=== PATIENT | female | born 1950 | race Caucasian/White ===

== ENCOUNTER 2018-01-02 00:47 | Outpatient (CLI) | payer MEDICARE, SELFPAY ==
--- NOTE | 2018-01-02 07:51 | DI.MRI_ITS ---
SYMPTOM/DIAGNOSIS: INCREASING LOW BACK AND RT LEG PAIN, SPINAL STENOSIS, M48.062, NEUROGENIC CLAUDICATION LUMBAR SPINE MRI: Routine noncontrast examination. Comparison is made with 01/31/14. The conus medullaris has a normal appearance and location. At L 5-S 1, there is a small left paracentral disc herniation which does appear to impinge upon the left S 1 nerve root. No central spinal canal stenosis is seen. There is moderate left neural foraminal stenosis due to the degenerative changes. At L 4-5, there is a diffuse disc bulge. There are degenerative changes of the facets. There does appear to be impingement upon both the left and right neural foramen due to the diffuse disc bulge. There is mild narrowing of the central spinal canal noted. Mild left neural foraminal stenosis is present. At L 3-4, there is a moderately large right paracentral disc herniation with extrusion posterior to the L 4 vertebral body. It does compress upon the right L 4 nerve root. There are hypertrophic changes of the facets causing mild to moderate central spinal canal stenosis. Mild to moderate right neural foraminal stenosis is seen and mild left neural foraminal stenosis is present. At L 2-3, there is a small right paracentral disc herniation. There is mild impingement upon the anterior thecal sac. No right neural foraminal stenosis is seen. There is mild left neural foraminal stenosis. At L 1-2, there is no focal disc herniation, central spinal canal or neural foraminal stenosis. Marrow signal is within normal limits apart from the degenerative signal change. IMPRESSION: 1. Moderately large right paracentral disc herniation at L 3-4, extruding posterior to the L 4 vertebral body. It does compress the right L 4 nerve root. Degenerative changes are seen at this level which cause central spinal canal stenosis and neural foraminal stenosis as described above. 2. Small left paracentral disc herniation at L 5-S 1 which does appear to mildly impinge upon the left S 1 nerve root. 3. Multi level degenerative changes in the lumbar spine causing central spinal canal and neural foraminal stenosis as described above.
== END 2018-01-02 01:07 ==
PROVIDERS: PCP Family Medicine; Visit Provider Family Medicine
DX: M54.5 Low back pain (principal); M54.16 Radiculopathy, lumbar region; M48.062 Spinal stenosis, lumbar region with neurogenic claudication; M51.17 Intervertebral disc disorders with radiculopathy, lumbosacral region
CPT/HCPCS: 72148

== ENCOUNTER 2018-01-17 00:41 | Outpatient (CLI) | payer MEDICARE, SELFPAY ==
[2018-01-17 08:18] LABS: HCT 44.8 % (36.0-46.0); HGB 15.3 g/dL (12.0-15.5); Mean Corp. HGB Concentration 34.2 g/dL (32.0-36.0); Mean Corpuscular Hemoglobin 31.1 pg (27.0-33.0); Mean Corpuscular Volume 91.1 fL (80-95); Mean Platelet Volume 9.4 fL (8.0-11.0); Platelet Count 309 x1000/uL (130-400); RBC 4.92 m/cumm (4.00-5.20); RBC Distribution Width 13.4 % (11.7-14.6); White Blood Cell Count 8.52 k/cumm (4.4-10.8)
--- NOTE | 2018-01-17 09:01 | DI.RAD_ITS ---
SYMPTOMS/DIAGNOSIS: SMOKING, PREOPERATIVE GENERAL EXAMINATION, Z01.818 CHEST X-RAY, PA AND LATERAL: Comparison is 10/01/13. The heart size and pulmonary vasculature are within normal limits. There is again seen a calcified granuloma in the right mid lung. No findings to suggest acute pneumonia or congestive heart failure are seen. The lungs appear hyperinflated suggesting underlying COPD. Mild degenerative changes are seen in the spine. IMPRESSION: COPD.
[2018-01-17 09:43] LABS: ALT 32 U/L (12-78); AST 55 U/L (15-37); Albumin 3.4 g/dL (3.4-5.0); Alkaline Phosphatase 167 U/L (46-116); Anion Gap 7.4 mmol/L (3-11); BUN 9 mg/dL (7-18); Bilirubin, Total 0.4 mg/dL (0.2-1.0); CO2 32.6 mmol/L (21.0-32.0); CREATININE 0.79 mg/dL (0.55-1.02); Calcium 9.3 mg/dL (8.5-10.1); Chloride 97 mmol/L (98-107); GGT 41 U/L (5-55); Glucose 105 mg/dL (70-100); Potassium 4.7 mmol/L (3.5-5.1); Sodium 137 mmol/L (136-145); TSH (W/Ref FT4) 2.88 uIU/mL (0.358-3.74); Total Protein 7.1 g/dL (6.4-8.2)
== END 2018-01-17 01:01 ==
PROVIDERS: PCP Family Medicine; Visit Provider Family Medicine
DX: F17.200 Nicotine dependence, unspecified, uncomplicated (principal); J44.9 Chronic obstructive pulmonary disease, unspecified; E78.5 Hyperlipidemia, unspecified; E83.52 Hypercalcemia; K70.10 Alcoholic hepatitis without ascites; Z01.818 Encounter for other preprocedural examination
CPT/HCPCS: 36415; 80053; 85027; 71046; 82977; 84443

== ENCOUNTER 2018-05-18 01:41 | Outpatient (CLI) | payer MEDICARE, SELFPAY ==
--- NOTE | 2018-05-18 07:30 | DI.MAMMO_ITS ---
SYMPTOMS/DIAGNOSIS: SCREENING, Z12.31 MAMMOGRAMS: Mammograms were interpreted according to the usual protocol including computer analysis with CAD system, tomosynthesis and C view imaging. The breasts are of moderate density with fairly symmetrical distribution of fibroglandular tissue. No dominant mass or clumped microcalcification is identified in either breast. Current examination is compared with previous examinations including April 2017 and there has been no gross interval change in appearance in comparison with the previous studies. CONCLUSION: No specific evidence of malignancy at this time. Routine screening examinations are suggested at yearly intervals due to the family history of breast carcinoma. Category 1, breast density category B. MQSA ASSESSMENT OF FINDINGS: Negative. Category 1. Patient will receive a letter notifying them of these results. BI-RADS category B. There are scattered areas of fibroglandular density.
[2018-05-18 08:30] LABS: Abs Immature Grans 0.02 k/cumm (0.0-0.09); Absolute Basophil Count 0.04 k/cumm (0.0-0.2); Absolute Lymphocyte Count 2.42 k/cumm (1.2-3.4); Absolute Monocyte Count 0.65 k/cumm (0.11-0.7); Basophils % 0.6; Eosinophils % 2.8; HCT 52.2 % (36.0-46.0); HGB 16.9 g/dL (12.0-15.5); Immature Grans % 0.3; Lymphocytes % 33.9; Mean Corp. HGB Concentration 32.4 g/dL (32.0-36.0); Mean Corpuscular Hemoglobin 29.3 pg (27.0-33.0); Mean Corpuscular Volume 90.6 fL (80-95); Mean Platelet Volume 9.8 fL (8.0-11.0); Monocytes % 9.1; Neutrophils % 53.3; Platelet Count 227 x1000/uL (130-400); RBC 5.76 m/cumm (4.00-5.20); RBC Distribution Width 14.6 % (11.7-14.6); White Blood Cell Count 7.13 k/cumm (4.4-10.8)
[2018-05-18 09:17] LABS: ALT 17 U/L (12-78); AST 21 U/L (15-37); Albumin 3.8 g/dL (3.4-5.0); Alkaline Phosphatase 203 U/L (46-116); BUN 14 mg/dL (7-18); Bilirubin, Total 0.3 mg/dL (0.2-1.0); CREATININE 0.94 mg/dL (0.55-1.02); Calcium 9.8 mg/dL (8.5-10.1); Chloride 102 mmol/L (98-107); Estimated GFR 59.22 (mL/min/1.73m2); GGT 35 U/L (5-55); Glucose 105 mg/dL (70-100); Sodium 141 mmol/L (136-145); TSH (W/Ref FT4) 4.13 uIU/mL (0.358-3.74); Total Protein 7.9 g/dL (6.4-8.2)
[2018-05-18 10:11] LABS: FREE T4 0.85 ng/dL (0.76-1.46)
== END 2018-05-18 02:01 ==
PROVIDERS: PCP Family Medicine; Visit Provider Family Medicine
DX: Z12.31 Encounter for screening mammogram for malignant neoplasm of breast (principal); Z80.3 Family history of malignant neoplasm of breast; E78.5 Hyperlipidemia, unspecified; E83.52 Hypercalcemia; K76.0 Fatty (change of) liver, not elsewhere classified; K70.10 Alcoholic hepatitis without ascites
CPT/HCPCS: 36415; 77063; 77067; 80053; 82977; 84439; 84443; 85025

== ENCOUNTER 2018-10-26 07:38 | Outpatient (CLI) | payer MEDICARE, SELFPAY ==
[2018-10-26 09:15] LABS: TSH (W/Ref FT4) 1.06 uIU/mL (0.358-3.74)
== END 2018-10-26 07:58 ==
PROVIDERS: PCP Family Medicine; Visit Provider Family Medicine
DX: E03.9 Hypothyroidism, unspecified (principal)
CPT/HCPCS: 36415; 84443

== ENCOUNTER 2019-02-19 01:34 | Outpatient (CLI) | payer MEDICARE, SELFPAY ==
[2019-02-19 07:34] LABS: HCT 52.6 % (36.0-46.0); HGB 17.5 g/dL (12.0-15.5); Mean Corp. HGB Concentration 33.3 g/dL (32.0-36.0); Mean Corpuscular Hemoglobin 29.9 pg (27.0-33.0); Mean Corpuscular Volume 89.9 fL (80-95); Mean Platelet Volume 10.4 fL (8.0-11.0); Platelet Count 255 x1000/uL (130-400); RBC 5.85 m/cumm (4.00-5.20); RBC Distribution Width 14.7 % (11.7-14.6); White Blood Cell Count 7.72 k/cumm (4.4-10.8)
[2019-02-19 08:31] LABS: ALT 16 U/L (14-59); AST 20 U/L (15-37); Albumin 3.9 g/dL (3.4-5.0); Alkaline Phosphatase 182 U/L (46-116); Anion Gap 7.9 mmol/L (3-11); BUN 18 mg/dL (7-18); Bilirubin, Total 0.3 mg/dL (0.2-1.0); CO2 30.1 mmol/L (21.0-32.0); Calcium 9.7 mg/dL (8.5-10.1); Chloride 104 mmol/L (98-107); Glucose 103 mg/dL (70-100); Potassium 4.9 mmol/L (3.5-5.1); Sodium 142 mmol/L (136-145); Total Protein 7.8 g/dL (6.4-8.2)
[2019-02-19 08:37] LABS: GGT 34 U/L (5-55)
== END 2019-02-19 01:54 ==
PROVIDERS: PCP Family Medicine; Visit Provider Family Medicine
DX: K70.10 Alcoholic hepatitis without ascites (principal)
CPT/HCPCS: 36415; 80053; 85027; 82977

== ENCOUNTER 2019-03-27 02:33 | Outpatient (CLI) | payer MEDICARE, SELFPAY ==
[2019-03-27] MEDS: Gadoterate meglumine 20 ML VIAL 14 ML IVP (10:05)
[2019-03-27] MEDS: Normal Saline Flush 10 ML SYR IVP (10:07)
--- NOTE | 2019-03-27 10:30 | DI.MRI_ITS ---
EXAM: MR LUMBAR SPINE WO/W CLINICAL HISTORY: LBP and left leg pain/ s/p surgery, spinal stenosis, M48.06 TECHNIQUE: Multiplanar multisequence MRI was performed. Fat-suppressed T1 axial and sagittal sequenc es were performed pre and post IV gadolinium. COMPARISON: MR lumbar spine wo from 01/02/2018 FINDINGS: At T10-11, there is left neural foraminal narrowing secondary to combination of facet degenerative ch anges. There is mild disc bulging. There is a Schmorl's node at the superior endplate of T11. The T12-L1 and L1-2 levels are unremarkable. At L2-3, there are broad-based disc osteophytes. There are mild facet degenerative changes and mild l igamentous hypertrophy combining to produce mild central canal stenosis and mild bilateral neural for aminal narrowing. At L3-4, there has been a previous laminectomy since the previous exam. There is no significant central canal stenosis. There is moderate right neural foraminal narrowing. There is a m oderate levoscoliosis with the apex at L3-4. There are prominent right-sided osteophytes and severe n arrowing of the right side of the disc space. At L4-5, there is broad-based disc bulging, facet degenerative changes and ligamentous hypertrophy wh ich combine to produce a moderate degree of central canal stenosis and moderate bilateral neural fora michael narrowing. At L5-S1, there are broad-based disc osteophytes eccentric toward the left. There are degenerative ch anges and ligamentous hypertrophy causing mild central canal stenosis and mild left neural foraminal narrowing. No suspicious enhancing lesions are seen. IMPRESSION: Combination of degenerative disc changes, facet degenerative changes and ligamentous hypertrophy pr oduces moderate central canal stenosis and moderate neural foraminal narrowing at L4-5 and mild centr al canal stenosis at L5-S1. No disc herniation is seen at any level.
== END 2019-03-27 02:53 ==
PROVIDERS: PCP Family Medicine; Visit Provider Family Medicine
DX: M54.5 Low back pain (principal); M79.605 Pain in left leg; M48.061 Spinal stenosis, lumbar region without neurogenic claudication; M51.17 Intervertebral disc disorders with radiculopathy, lumbosacral region
CPT/HCPCS: 72158

== ENCOUNTER 2019-06-26 13:10 | Outpatient (CLI) | payer MEDICARE, SELFPAY ==
[2019-06-26 13:16] VITALS: BP 147/73; PULSE 69; RESP 22; TEMP 36; O2SAT 97
--- NOTE | 2019-06-26 13:20 | PDOC.PAIN_ITS ---
Pain Clinic Procedure Note Procedure Note Procedure Note: LUMBAR / SACRAL TRANSFORAMINAL INJECTION HAKAN ZHAO has been referred to the [facility] for a transforaminal nerve root block and steroid injection. Pre-operative diagnosis: lumbar radiculopathy Post-operative diagnosis: same as above COMMENTS:patient is status post right L3-4 hemilaminectomy, facectectomy and micro-diskectomy by Dr Oneill in 2018. She now developed left sided radicular pain involving left anterior-lateral thigh and some left knee radiation. MRI L spine shows foraminal stenosis at L3-4 level with impingement of left L4 nerve root. Patient has been evaluated by Ms Marie Solano APRN in our pain clinic and patient is here for a left L4-5 TFESI for symptomatic relief. Patient was interviewed and the medical record reviewed. There were no medical, pharmacologic, radiographic or other structural contraindications to attempting fluoroscopically guided transforaminal nerve root block and epidural steroid injection. Risks and expected side effects as well as potential benefit of the procedure were reviewed and voiced concerns addressed. The printed consent form was signed and witnessed. Standard time-out procedure was performed. Patient was placed in the prone position on the fluoroscopy table and automated blood pressure cuff and pulse oximeter applied. Fluoroscopy was utilized to identify the left neural foramen between L4 and L5 . A skin connie was made for the needle insertion site. A Chlorhexadine prep was carried out, and sterile drapes were applied. Local anesthesia was achieved in the skin and subcutaneous tissues. A 5'' 22 gauge spinal tip spinal needle was then inserted, advanced with fluoroscopic guidance into the neural foramen, confirmed on the lateral view. After negative aspiration, 2 ml of Omnipaque 240 was injected confirming position in A/P and lateral views. This showed a good spread of dye transforaminally into the epidural space. There was no vascular update with contrast injection under continuous fluoroscopy and digital substraction. 15 mg of Dexamethasone was injected, followed by 0.5 ml of 1% Xylocaine flush for the nerve root block, as well. There was no unusual discomfort expressed.The needle was withdrawn. The patient tolerated the procedure well. A Band-Aid was applied. Vital signs were stable throughout the procedure and were as recorded in nursing records. If given, dosages of intravenous drugs for anxiolysis and analgesia were documented in nursing records. Follow up plans and appointments were discussed. Post procedure instruction was given as documented in nursing records and patient was discharged in the care of an identified starting gate driver. COMMENTS:patient tolerated procedure well. She reported pre-procedure pain level 7 out of 10, post-procedure pain level as 5 out of 10. I personally performed the entire procedure. Karlo Murphy MD Pain Management CC: Clarita Dan MD, DC
--- NOTE | 2019-06-26 13:57 | DI.RAD_ITS ---
EXAM: XR PAIN CLINIC LUMBAR SP 2V CLINICAL HISTORY: Dx: Lumbar Radiculopathy TECHNIQUE: 2D and realtime digital imaging was performed. CONTRAST MATERIAL: Refer to procedure report. COMPARISON: No exams were available for comparison FINDINGS: Fluoroscopy was provided for Dr. Murphy during the performance of a transforaminal epidural steroid injec tion. Please refer to the procedure report for complete details. Fluoro time: 26.2 seconds IMPRESSION:
[2019-06-26 14:06] VITALS: BP 171/80; PULSE 72; RESP 21; O2SAT 93
[2019-06-26] MEDS: Dexamethasone Sod. Phos./Pres-Free 10 MG/ML VIAL IJ (14:09)
[2019-06-26] MEDS: Omnipaque 240 MG/ML 50 ML BTL IJ (14:09)
== END 2019-06-26 13:30 ==
PROVIDERS: PCP Family Medicine; Visit Provider Internal Medicine
DX: M54.16 Radiculopathy, lumbar region (principal)
CPT/HCPCS: 64483; 72100; Q9967

== ENCOUNTER 2019-09-11 10:50 | Outpatient (CLI) | payer MEDICARE, SELFPAY ==
--- NOTE | 2019-09-11 06:00 | DI.RAD_ITS ---
EXAM: XR PAIN CLINIC LUMBAR SP 2V CLINICAL HISTORY: Lumbar Spondylosis TECHNIQUE: 2D and realtime digital imaging was performed. Fluoroscopy was provided. COMPARISON: No exams were available for comparison FINDINGS: C-arm fluoroscopy was utilized by Dr. Murphy during apparent epidural injection. Hard copy shows needle placement with epidural injection at what appears to be the L5-S1 level. Fluoroscopy time was 32.8 seconds. RADIATION DOSE DELIVERED: Total DLP
[2019-09-11 11:08] VITALS: BP 119/76; PULSE 88; RESP 20; TEMP 36.9; O2SAT 94
[2019-09-11 11:52] VITALS: BP 141/91; PULSE 79; RESP 14; O2SAT 92
--- NOTE | 2019-09-11 12:05 | PDOC.PAIN_ITS ---
Pain Clinic Procedure Note Procedure Note Procedure Note: PROCEDURE NOTE CAUDAL EPIDURAL STERIOID INJECTION Date of Service: September 11, 2019 Patient: HAKAN ZHAO Provider: Karlo MCCLENDON Tarik ZHAO has been referred to the [facility] for caudal epidural steroid injection. Pre-operative diagnosis: Post-operative diagnosis: COMMENTS: Referring provider: Marie Solano APRN Symptoms: back pain with radiation to predominantly left anterior lateral thigh, less right sided s ymptoms Imaging reviewed: MRI L spine reivewed Hakan was originally scheduled for diagnostic lumbar medial branch nerve block for today. She underwent left sided lumbar TFESI which provided about 25% pain relief that lasted 1 month. She had a history of prior laminectomy with Dr Oneill. She continues to experience predominantly left anterior lateral thigh pain, some back pain. On Rogers's test today, with lumbar extension, patient reports improvement of her back pain. Given patient describes persistent lumbar radicular symptoms, as well as Rogers's test did not reproduce patient's pain (it actually alleviated her symptoms), which makes facet mediated pain less likely to be her pain generator. Decision was made to convert procedure to lumbar e pidural steroid injection using caudal approach given her prior laminectomy. HAKAN was interviewed and the medical record was reviewed. There were no medical, pharmacologic, radiographic or other structural contraindications to attempting fluoroscopically guided epidural steroid injection. Risks and expected side effects as well as potential benefit of the procedure were reviewed with Ms ZHAO, and her voiced concerns were addressed. The printed consent form was signed and witnessed. Standard time-out procedure was performed. Ms ZHAO was placed in the prone position on the fluoroscopy table and automated blood pressure cuff and pulse oximeter applied. The skin entry point for entering/approaching the epidural space by a caudal approach through the sacral hiatus ed identified with surgical skin marking. Following thorough chlorhexidine preparation x 2 of the skin and draping and 1% lidocaine infiltration of the skin entry point and subcutaneous tissues, a 17 gauge Touhy needle was placed under fluoroscopic guidance into the epidural space. Needle tip placement and depth were aided and confirmed by fluoroscopy in the lateral and AP position. There was no paresthesia or return of blood or CSF through the needle. 0.5 cc of Omnipaque 240 was injected with clear epidural spread confirmed with fluoroscopy. An Arrow 19G radio-opaque epidural catheter was advanced into the epidural space to the L5-S1, the catheter tip started to veer towards the right side, despite multiple attempts to redirect towards the left. Catheter also met with some degree of resistance. 1 cc of Omnipaque 240 was injected with clear epidural spread. 80 mg of Depomedrol was injected. There was no unusual discomfort expressed by HAKAN . The needle and catheter were then flushed with 2 cc of preservative free normal saline and 1cc of 1% Lidocaine and they were removed without difficulty. (48 cc of Omnipaque was wasted) Ms ZHAO's vital signs were stable throughout the procedure and were as recorded in the docflowsheet by the nursing staff. If given, dosages of intravenous drugs for anxiolysis and analgesia were documented in MAR. Follow up plans and appointments were discussed with Ms ZHAO. Post procedure instruction was given as documented in nursing documentation and having met discharge criteria, she was discharged from the [facility]. COMMENTS: No apparent complications. This procedure can be completed up to 3 times per 12 months. If this fails to achieve significant pain relief, I would recommend NCS/EMG to further investigate the cause of her persistent left leg pain. She should also have a follow up visit with Ms Solano to discuss medication options, perhaps gabapentinoid if patient has not tried it before. I personally completed the entire procedure. Karlo Murphy Pain Management
[2019-09-11] MEDS: Omnipaque 240 MG/ML 50 ML BTL IJ (12:18)
[2019-09-11] MEDS: Normal Saline 20 ML VIAL (12:19)
[2019-09-11] MEDS: methylPREDNISolone ACETATE 40 MG/ML VIAL IJ (12:20)
== END 2019-09-11 11:10 ==
PROVIDERS: PCP Family Medicine; Visit Provider Internal Medicine
DX: M54.16 Radiculopathy, lumbar region (principal); M96.1 Postlaminectomy syndrome, not elsewhere classified
CPT/HCPCS: 62323; 72100; 76000; J1030; Q9967

== ENCOUNTER 2019-10-11 02:13 | Outpatient (CLI) | payer MEDICARE, SELFPAY ==
[2019-10-11 10:48] LABS: HGB 16.2 g/dL (12.0-15.5); Mean Corp. HGB Concentration 32.4 g/dL (32.0-36.0); Mean Corpuscular Hemoglobin 29.7 pg (27.0-33.0); Mean Corpuscular Volume 91.6 fL (80-95); Mean Platelet Volume 10.3 fL (8.0-11.0); Platelet Count 249 x1000/uL (130-400); RBC 5.46 m/cumm (4.00-5.20); RBC Distribution Width 14.6 % (11.7-14.6); White Blood Cell Count 8.64 k/cumm (4.4-10.8)
[2019-10-11 11:19] LABS: ALT 16 U/L (14-59); AST 20 U/L (15-37); Albumin 3.8 g/dL (3.4-5.0); Alkaline Phosphatase 163 U/L (46-116); Anion Gap 8.9 mmol/L (3-11); BUN 16 mg/dL (7-18); Bilirubin, Total 0.4 mg/dL (0.2-1.0); CO2 30.1 mmol/L (21.0-32.0); CREATININE 1.04 mg/dL (0.55-1.02); Calcium 9.5 mg/dL (8.5-10.1); Chloride 100 mmol/L (98-107); Estimated GFR 52.54 (mL/min/1.73m2); GGT 34 U/L (5-55); Glucose 100 mg/dL (74-106); Potassium 4.1 mmol/L (3.5-5.1); Sodium 139 mmol/L (136-145); TSH (W/Ref FT4) 0.74 uIU/mL (0.36-3.74); Total Protein 7.5 g/dL (6.4-8.2)
== END 2019-10-11 02:33 ==
PROVIDERS: PCP Family Medicine; Visit Provider Family Medicine
DX: E03.9 Hypothyroidism, unspecified (principal); I10 Essential (primary) hypertension; K70.10 Alcoholic hepatitis without ascites; K76.0 Fatty (change of) liver, not elsewhere classified; M48.062 Spinal stenosis, lumbar region with neurogenic claudication; F10.20 Alcohol dependence, uncomplicated; F41.9 Anxiety disorder, unspecified; Z72.89 Other problems related to lifestyle
CPT/HCPCS: 36415; 80053; 85027; 82977; 84443

== ENCOUNTER 2019-11-28 01:37 | Outpatient (CLI) | payer MEDICARE, SELFPAY ==
--- NOTE | 2019-11-28 08:37 | DI.MAMMO_ITS ---
EXAM: MAMMO SCREENING CLINICAL HISTORY: screening,Z12.39 TECHNIQUE: Mammograms were interpreted according to the usual protocol including computer analysis w [employer] CAD system, tomosynthesis and C-view imaging. COMPARISON: 2009 through 2018 FINDINGS: The breasts are composed of scattered fibroglandular densities, Breast Density category B. No suspicious masses or suspicious microcalcifications are seen. Vascular calcifications are noted. No skin thickening or abnormal axillary lymph nodes are seen. There has been no significant change from prior exams. IMPRESSION: BI-RADS Category 1, Negative mammogram Yearly screening mammography is recommended. Breast Density Category B, scattered fibroglandular densities. A negative radiographic report should not delay biopsy if a dominant or clinically suspicious mass is present. Up to ten percent of cancers are not identified on mammography. A negative report may reinforce clinical impression. Adenosis and dense breasts may obscure an underlying neoplasm. False positive reports average 6 to 10%. Patient will receive a letter notifying them of these results.
== END 2019-11-28 01:57 ==
PROVIDERS: PCP Family Medicine; Visit Provider Family Medicine
DX: Z12.31 Encounter for screening mammogram for malignant neoplasm of breast (principal); R92.2 Inconclusive mammogram
CPT/HCPCS: 77063; 77067

== ENCOUNTER 2020-06-09 04:29 | Outpatient (CLI) | payer MEDICARE, SELFPAY ==
[2020-06-09 09:49] LABS: ALT 14 U/L (14-59); AST 16 U/L (15-37); Albumin 3.5 g/dL (3.4-5.0); Alkaline Phosphatase 169 U/L (46-116); Anion Gap 6.2 mmol/L (3-11); BUN 18 mg/dL (7-18); Bilirubin, Total 0.4 mg/dL (0.2-1.0); CO2 31.8 mmol/L (21.0-32.0); CREATININE 0.8 mg/dL (0.55-1.02); Calcium 9.3 mg/dL (8.5-10.1); Chloride 104 mmol/L (98-107); Ferritin 54 ng/mL (8-252); Glucose 98 mg/dL (74-106); Potassium 3.7 mmol/L (3.5-5.1); Sodium 142 mmol/L (136-145); TSH (W/Ref FT4) 1.27 uIU/mL (0.36-3.74); Total Protein 7.3 g/dL (6.4-8.2)
== END 2020-06-09 04:30 | disposition home or self-care (01) ==
LOC: LBO 04:29
PROVIDERS: PCP Family Medicine; Visit Provider Family Medicine
DX: I10 Essential (primary) hypertension (principal); K76.0 Fatty (change of) liver, not elsewhere classified; E03.9 Hypothyroidism, unspecified; D75.1 Secondary polycythemia; F41.9 Anxiety disorder, unspecified; F17.200 Nicotine dependence, unspecified, uncomplicated; G89.29 Other chronic pain; M25.561 Pain in right knee; K70.10 Alcoholic hepatitis without ascites
CPT/HCPCS: 36415; 80053; 82728; 84443

== ENCOUNTER → 2021-08-28 01:21 | Outpatient (CLI) | payer MEDICARE, SELFPAY ==
--- NOTE | 2021-08-28 08:04 | DI.CTLCSR_ITS ---
Exam(s) CT CHEST LUNG CANCER SCREEN EXAM: CT CHEST LUNG CANCER SCREEN CLINICAL HISTORY: Screening for lung cancer, current smoker, F17.210 TECHNIQUE: Imaging Protocol: Axial computed tomography images with coronal and sagittal reformatted images were created and reviewed COMPARISON: CT CHEST ABD PELVIS WITH CONTRAST from 08/11/2017 FINDINGS: Tracheobronchial tree: Patent where visualized. Pulmonary parenchyma: No consolidation or dominant measurable mass. No architectural distortion. Ther e are calcified granuloma in the lungs. Lung Nodules: No noncalcified pulmonary nodules. Mediastinum and Radha: No dominant adenopathy or fluid collection. The esophagus is unremarkable. Thyroid gland: Unremarkable. Lymph nodes: Unremarkable. Pleura: No effusion or pneumothorax. Heart: The heart is not dilated. Coronary artery calcifications are present. No pericardial effusion . Aorta: Thoracic aorta non-dilated.Atherosclerosis. Upper abdomen: No acute abnormality. Findings are prior granulomatous disease in the spleen. Soft Tissues: Unremarkable. Bones: Within normal limits. IMPRESSION: No noncalcified pulmonary nodules. Lung RADS Cat 1 - Negative: No nodules and definitely benign nodules Lung-RADS 1.0 CATEGORIES: Category 0 - Prior chest CT exam(s) being located for comparison. Category 1 - Annual screening in 12 months. No nodules or definitely benign nodules. Category 2 - Annual screening in 12 months. Benign appearance. Nodules with low likelihood of becomin g active cancer. Category 3 - 6-month follow-up. Probably benign. Short-term follow-up suggested. Nodules with low lik elihood of becoming active cancer. Category 4A - 3-month follow-up and CT/PET if >8 mm in size. Suspicious finding. Findings which requi re additional testing. Category 4B - Findings which require additional testing and tissue sampling. Suspicious finding. Category 4X - Category 3 or 4 nodules with additional features or imaging findings that increases the suspicion of malignancy. Modifier S- Potentially clinically significant finding. (Non lung cancer) RADIATION DOSE DELIVERED: 76.04mGy.cm Total DLP 1.84mGyCTDIvol 76.04mGy.cm Total DLP 1.84mGy CTDIvol DATA REPOSITORY: All CT scans at this facility are submitted to the National Radiology Data Registry (NRDR) Dose Index Registry (DIR) with the [employer] ([employer]). RADIATION OPTIMIZATION: All CT scans at this facility use at least one of these dose optimization te chniques: automated exposure control; mA and/or kV adjustment per patient size (includes targeted exa ms where dose is matched to clinical indication); or iterative reconstruction.
--- NOTE | 2021-08-28 09:38 | DI.MAMMO_ITS ---
Exam(s) MAMMO SCREENING EXAM: MAMMO SCREENING CLINICAL HISTORY: screening, Z12.39 TECHNIQUE: Bilateral full field digital CC and MLO mammographic images were obtained with 3D tomosyn thesis and utilizing computer aided detection (CAD). COMPARISON: Available for comparison. FINDINGS: Masses/Architectural Distortion: None seen. Microcalcifications: No suspicious pleomorphic-type are seen. Skin Thickening/Nipple Retraction: None. IMPRESSION: 1. No significant interval change with no specific features of malignancy noted. 2. Unless there is more urgent need, screening mammography is recommended, as per [employer] guidelines. BI-RADS Category 1 - Negative Breast Density - Category C - Heterogeneously dense Breast density category C or D implies that the patient has dense breast tissue. Dense breast tissue is very common and is not abnormal but dense breast tissue can make it harder to find cancer on a ma mmogram. Also, dense breast tissue may increase their breast cancer risk. This information about the result of the mammogram report was provided to the patient to raise their awareness. Use this report when you speak with the patient about their risks for breast cancer, which includes their family hist ory. At that time, you may recommend for more screening tests (Ultrasound or MRI) as they might be us eful based on their risk. A negative radiographic report should not delay biopsy if a dominant or clinically suspicious mass is present. Up to ten percent of cancers are not identified on mammography. A negative report may reinforce clinical impression. Adenosis and dense breasts may obscure an underlying neoplasm. False positive reports average 6 to 10%. Patient will receive a letter notifying them of these results.
== END ==
PROVIDERS: PCP Family Medicine; Visit Provider Family Medicine
DX: Z12.31 Encounter for screening mammogram for malignant neoplasm of breast (principal); F17.210 Nicotine dependence, cigarettes, uncomplicated; Z12.2 Encounter for screening for malignant neoplasm of respiratory organs; J98.4 Other disorders of lung
CPT/HCPCS: 71271; 77063; 77067

== ENCOUNTER 2021-09-02 04:25 | Outpatient (CLI) | payer MEDICARE, SELFPAY ==
[2021-09-02 12:49] LABS: HCT 50.4 % (36.0-46.0); HGB 16.2 g/dL (11.2-15.7); MCH 30.5 pg (27.0-33.0); MCHC 32.1 % (32.0-36.0); MCV 95 fL (80-95); MPV 10.9 fL (8.0-11.0); Platelet Count 283 10^3/uL (130-400); RBC 5.32 10^6/uL (3.93-5.22); RDW 13.6 % (11.7-14.6); RDW-SD 47.7 fL; WBC 7.66 10^3/uL (4.4-10.8)
[2021-09-02 13:21] LABS: ALT 16 U/L (14-59); AST 19 U/L (15-37); Alkaline Phosphatase 130 U/L (46-116); Anion Gap 9.7 mmol/L (3-11); BUN 22 mg/dL (7-18); Bilirubin, Total 0.5 mg/dL (0.2-1.0); CO2 29.3 mmol/L (21.0-32.0); Calcium 9.3 mg/dL (8.5-10.1); Chloride 102 mmol/L (98-107); Estimated GFR 54.66 (mL/min/1.73m2); Glucose 109 mg/dL (74-106); Potassium 4.5 mmol/L (3.5-5.1); Sodium 141 mmol/L (136-145); TSH (W/Ref FT4) 0.87 uIU/mL (0.36-3.74); Total Protein 7.5 g/dL (6.4-8.2)
== END 2021-09-02 04:26 | disposition home or self-care (01) ==
LOC: LOS 04:26
PROVIDERS: PCP Family Medicine; Visit Provider Family Medicine
DX: D75.1 Secondary polycythemia (principal); E03.9 Hypothyroidism, unspecified; E78.5 Hyperlipidemia, unspecified; K70.10 Alcoholic hepatitis without ascites; K76.0 Fatty (change of) liver, not elsewhere classified
CPT/HCPCS: 36415; 80053; 85027; 84443

== ENCOUNTER 2021-09-04 02:11 | Outpatient (CLI) | payer MEDICARE, SELFPAY ==
[2021-09-04] MEDS: Inhaler, Assist Device 1 EACH MC (08:49)
[2021-09-04] MEDS: Albuterol HFA 18 GM 200 PUFF INH IH (08:49)
--- NOTE | 2021-09-15 09:33 | W.PFT ---
Date of service: 09/04/21 Time of Service: 08:05 Pulmonary Function Test Result Requesting Provider Clarita Dan Indications: Morning cough, dyspnea Interpretation Spirometry: There is moderate airflow limitation. There is no significant bronchodilator response. Impression Moderate obstructive lung disease. Note: When compared to 10/10/13, the FVC and FEV1 are stable. Clinical Correlation therefore is recommended.
== END 2021-09-04 02:12 | disposition home or self-care (01) ==
PROVIDERS: PCP Family Medicine; Visit Provider Family Medicine
DX: J44.9 Chronic obstructive pulmonary disease, unspecified (principal); F17.210 Nicotine dependence, cigarettes, uncomplicated; R05.8 Other specified cough; R06.09 Other forms of dyspnea
CPT/HCPCS: 94060

== ENCOUNTER → 2022-01-29 00:47 | Outpatient (CLI) | payer MEDICARE, SELFPAY ==
--- NOTE | 2022-01-29 06:45 | DI.MRI_ITS ---
Exam(s) MR LUMBAR SPINE WO EXAM: MR LUMBAR SPINE WO CLINICAL HISTORY: lumbar radiculopathy right,spinal stenosis, m48.062. TECHNIQUE: Multiplanar multisequence MRI of the Lumbar spine was performed. COMPARISON: MR MR lumbar spine wo from 01/02/2018 MR MR LUMBAR SPINE WO/W from 03/27/2019 FINDINGS: In the superior aspect of the field of view of the sagittal sequences there is a deep Schmorl's node invagination into the superior endplate of T11 which was not present on the December 2017 images but which does not exhibit bone edema on STIR images and therefore is not a recent event. Conus medullaris is at normal level. There is no evidence of conus mass nor subjacent clumping of in trathecal nerve roots to suggest arachnoiditis. The distal thecal sac appears unremarkable.There is no evidence of Tarlov intrasacral cysts nor other significant findings within the sacral canal Bones: Scoliosis convex left is again noted, not increased. There are no acute fractures nor ominous osseous lesions in the lumbar vertebral bodies and visualized sacrum. With respect to the individual levels... T12-L1: Unremarkable L1-2: Relatively preserved disc height. Mild symmetrical annular bulging but without a distinct foca l disc herniation. Central canal dimensions are lower normal. There are mild minimal facet joint de generative changes. There is no evidence of foraminal stenosis on either side at this level. L2-3: This level exhibits moderate almost uniform disc space narrowing, slightly more so on the right than left side. There is broad relatively symmetrical annular bulging evident at this level which f lattens the anterior aspect of the thecal sac but there is no distinct focal disc herniation. There is mild central canal stenosis. There are mild degenerative changes in the facet joints. There is n o significant foraminal stenosis on either side. L3-4: This level again exhibits severe disc space narrowing on the right side of the disc and relativ e preservation of disc height on the left side. The previously present prominent right paracentral d isc herniation at this level seen on the 2018 study is no longer seen.. There is slight further heig ht loss on this right side of the disc space (side of prior disc herniation) and there are presently mild Modic type 1 sub endplate marrow edema changes on the far right side associated with lateral rig ht osteophytes at this level. There is broad relatively symmetrical mild annular bulging at this lev el but no significant focal disc herniation at this time. Instead there is now some mild posterior b main ridging on the right side at the level of the floor of the exiting right neural foramen. There i s now mild vertical foraminal stenosis on the right side but there is still preserved fat signal arou nd the exiting right nerve root at this level. There is no foraminal stenosis on the opposite-left s river at this level. Central canal dimensions are within normal limits. Mild degenerative changes in the facet joints. L4-5: This level exhibits relatively preserved disc space with mild disc space narrowing on the right side. There is relatively symmetrical annular bulging at this level no afia disc herniation. Ther e is mild-moderate central spinal canal stenosis. No significant foraminal stenosis despite moderate facet arthropathy on the left side and mild facet arthropathy on the right side. L5-S1: This level exhibits mild disc space narrowing. Mild annular bulging. No new significant disc herniation. No significant central canal stenosis at this level. There is mild vertical foraminal stenosis on the left side at this level due to the disc height loss on the left side. There is no fo raminal stenosis on the right side. Moderate facet arthropathy noted bilaterally. Soft tissues: No asymmetric atrophy of the psoas muscles. IMPRESSION: 1. Compared to the prior MRI scan of 01/02/2018 the previously present prominent right paracentral di sc herniation at L3-4 level is no longer seen. There has been slight further loss of height of the r ight-side of the disc space at this level with resultant mild vertical foraminal stenosis of the exit ing right neural foramen at this level now evident. Details of this level as above. 2. There is mild-moderate central canal stenosis at L4-5 level. 3. Mild multilevel asymmetric mild foraminal stenosis. No severe foraminal stenosis. DATA REPOSITORY:
--- NOTE | 2022-01-29 06:45 | DI.RAD_ITS ---
Exam(s) XR HIP RT COMPLETE AP PELVIS EXAM: XR HIP RT COMPLETE AP PELVIS CLINICAL HISTORY: r hip pain, m25.551. TECHNIQUE: 2D digital imaging was performed. COMPARISON: CR RT HIP COMPLETE AP PELVIS from 10/13/2017 FINDINGS: Views: Been significant progression of narrowing of the right hip joint compared to 4 years ago. There is now advanced uniform narrowing of the right hip joint space and marginal osteophytosis of th e femoral head. The opposite-left hip remains unremarkable. SI joints unremarkable. No osseous lesions. IMPRESSION: Advanced degenerative changes in right hip now evident. DATA REPOSITORY: RADIATION DOSE DELIVERED:
== END ==
PROVIDERS: PCP Family Medicine; Visit Provider Family Medicine
DX: M48.062 Spinal stenosis, lumbar region with neurogenic claudication (principal); M16.11 Unilateral primary osteoarthritis, right hip
CPT/HCPCS: 72148; 73502

== ENCOUNTER 2022-06-18 00:49 | Outpatient (CLI) | payer MEDICARE, SELFPAY ==
--- NOTE | 2022-06-18 06:45 | DI.DEXA_ITS ---
Exam(s) XR DEXA BONE DENSITY W/WO LAURA EXAM: XR DEXA BONE DENSITY W/WO LAURA CLINICAL HISTORY: OSTEOPOROSIS, M81.0 TECHNIQUE: COMPARISON: Comparison is 04/13/2011. FINDINGS: Lateral Spine Image: Unremarkable. No compression deformities identified. Left hip: Total T-Score: -2.0. This compares to -0.9 on the prior examination. Total Z-Score: -0.4 T- and Z-scores: Findings are consistent with osteopenia. Lumbar Spine: Total T-Score: -1.2. This compares to -1.7 on the prior examination. Total Z-Score: 1.1 T- and Z-scores: Findings are consistent with osteopenia. IMPRESSION: No evidence of osteoporosis.
== END 2022-06-18 01:09 ==
LOC: DI 00:49
PROVIDERS: PCP Family Medicine; Visit Provider Family Medicine
DX: M81.0 Age-related osteoporosis without current pathological fracture (principal)
CPT/HCPCS: 36415; 77080; 80053; 85027; 84443

== ENCOUNTER 2022-06-18 02:50 | Outpatient (CLI) | payer MEDICARE, SELFPAY ==
[2022-06-18 09:11] LABS: HCT 53.5 % (36.0-46.0); HGB 18.9 g/dL (11.2-15.7); MCH 32.7 pg (27.0-33.0); MCHC 35.3 % (32.0-36.0); MCV 93 fL (80-95); MPV 9.8 fL (8.0-11.0); Platelet Count 217 10^3/uL (130-400); RBC 5.78 10^6/uL (3.93-5.22); RDW-SD 46.5 fL; WBC 8.49 10^3/uL (4.4-10.8)
[2022-06-18 10:10] LABS: ALT 15 U/L (14-59); AST 18 U/L (15-37); Albumin 3.9 g/dL (3.4-5.0); Alkaline Phosphatase 136 U/L (46-116); Anion Gap 7.1 mmol/L (3-11); BUN 15 mg/dL (7-18); Bilirubin, Total 0.5 mg/dL (0.2-1.0); CO2 31.9 mmol/L (21.0-32.0); CREATININE 1.2 mg/dL (0.55-1.02); Calcium 9.4 mg/dL (8.5-10.1); Chloride 103 mmol/L (98-107); Estimated GFR 48.09 (mL/min/1.73m2); Glucose 112 mg/dL (74-106); Potassium 3.6 mmol/L (3.5-5.1); Sodium 142 mmol/L (136-145); TSH (W/Ref FT4) 1.24 uIU/mL (0.36-3.74); Total Protein 8.2 g/dL (6.4-8.2)
== END 2022-06-18 02:51 | disposition home or self-care (01) ==
LOC: LBO 02:51
PROVIDERS: PCP Family Medicine; Visit Provider Family Medicine
DX: D75.1 Secondary polycythemia (principal); E03.9 Hypothyroidism, unspecified; F41.9 Anxiety disorder, unspecified; Z72.89 Other problems related to lifestyle
CPT/HCPCS: 36415; 80053; 85027; 84443

== ENCOUNTER 2022-07-26 02:32 | Outpatient (CLI) | payer MEDICARE, SELFPAY ==
[2022-07-26] MEDS: Inhaler, Assist Device 1 EACH MC (09:14)
[2022-07-26] MEDS: Albuterol HFA 18 GM 200 PUFF INH IH (09:14)
--- NOTE | 2022-07-27 09:50 | W.PFT ---
Date of service: 07/26/22 Time of Service: 08:02 Pulmonary Function Test Result Indications: COPD Interpretation Spirometry: There is moderate airflow limitation. There is no significant bronchodilator response. The MIP and MEP are decreased. Lung Volumes: There is hyperinflation and air trapping Diffusion Capacity: There is a decreased diffusion. Airway Pressure: Increased airways resistance. Impression Moderate airflow obstruction with hyperinflation and a decreased diffusion. The MIP and MEP are low, which is likely related to the hyperinflation and air trapping. Note: When compared to 09/04/21, spirometry is stable. Clinical Correlation therefore is recommended.
== END 2022-07-26 02:33 | disposition home or self-care (01) ==
LOC: RT 02:32
PROVIDERS: PCP Family Medicine; Visit Provider Student in an Organized Health Care Education/Training Program
DX: J44.9 Chronic obstructive pulmonary disease, unspecified (principal)
CPT/HCPCS: 94060; 94726; 94729

== ENCOUNTER 2022-08-30 01:16 | Outpatient (CLI) | payer MEDICARE, SELFPAY ==
--- NOTE | 2022-08-30 08:50 | DI.MAMMO_ITS ---
Exam(s) MAMMO SCREENING EXAM: MAMMO SCREENING CLINICAL HISTORY: screening,z12.39 TECHNIQUE: Bilateral full field digital CC and MLO mammographic images were obtained with 3D tomosyn thesis and utilizing computer aided detection (CAD). COMPARISON: Available for comparison. FINDINGS: Masses/Architectural Distortion: None seen. Microcalcifications: No suspicious pleomorphic-type are seen. Skin Thickening/Nipple Retraction: None. IMPRESSION: 1. No significant interval change with no specific features of malignancy noted. 2. Unless there is more urgent need, screening mammography is recommended, as per [employer] [employer] guidelines. BI-RADS Category 1 - Negative Breast Density - Category C - Heterogeneously dense Breast density category C or D implies that the patient has dense breast tissue. Dense breast tissue is very common and is not abnormal but dense breast tissue can make it harder to find cancer on a ma mmogram. Also, dense breast tissue may increase their breast cancer risk. This information about the result of the mammogram report was provided to the patient to raise their awareness. Use this report when you speak with the patient about their risks for breast cancer, which includes their family hist ory. At that time, you may recommend for more screening tests (Ultrasound or MRI) as they might be us eful based on their risk. A negative radiographic report should not delay biopsy if a dominant or clinically suspicious mass is present. Up to ten percent of cancers are not identified on mammography. A negative report may reinforce clinical impression. Adenosis and dense breasts may obscure an underlying neoplasm. False positive reports average 6 to 10%. Patient will receive a letter notifying them of these results.
== END 2022-08-30 01:36 ==
LOC: DI 01:17
PROVIDERS: PCP Family Medicine; Visit Provider Family Medicine
DX: Z12.31 Encounter for screening mammogram for malignant neoplasm of breast (principal)
CPT/HCPCS: 77063; 77067

== ENCOUNTER → 2022-11-22 02:36 | Outpatient (CLI) | payer MEDICARE, SELFPAY ==
--- NOTE | 2022-11-22 07:45 | DI.CTLCSR_ITS ---
Exam(s) CT CHEST LUNG CANCER SCREEN EXAM: CT CHEST LUNG CANCER SCREEN CLINICAL HISTORY: Screening for lung cancer,CURRENT SMOKER, F17.210 TECHNIQUE: Imaging Protocol: Axial computed tomography images with coronal and sagittal reformatted images were created and reviewed. Low dose screening protocol. COMPARISON: CT CT CHEST LUNG CANCER SCREEN from 08/28/2021 FINDINGS: Tracheobronchial tree: No bronchiectasis or mucus plugging.. Mediastinum and Radha: No dominant adenopathy or fluid collection. Pulmonary parenchyma: No consolidation or dominant measurable mass. Mild emphysematous changes. Lung Nodules: Calcified nodules again noted greatest at right lung base. No suspicious pulmonary nod ules. Pleura: No effusion. No pneumothorax. Heart: The heart is not dilated. Mild coronary artery calcifications are seen. Aorta: Thoracic aorta non-dilated.Atherosclerotic changes. Upper abdomen: Unremarkable. Bones: Mild degenerative changes. Schmorl's nodes at T8 and T11. Soft Tissues: Unremarkable. IMPRESSION: No suspicious pulmonary nodules. Lung RADS Cat 1 - Negative: No nodules and definitely benign nodules Lung-RADS 1.0 CATEGORIES: Category 0 - Prior chest CT exam(s) being located for comparison. Category 1 - Annual screening in 12 months. No nodules or definitely benign nodules. Category 2 - Annual screening in 12 months. Benign appearance. Nodules with low likelihood of becomin g active cancer. Category 3 - 6-month follow-up. Probably benign. Short-term follow-up suggested. Nodules with low lik elihood of becoming active cancer. Category 4A - 3-month follow-up and CT/PET if >8 mm in size. Suspicious finding. Findings which requi re additional testing. Category 4B - Findings which require additional testing and tissue sampling. Category 4X - Category 3 or 4 nodules with additional features or imaging findings that increases the suspicion of malignancy. Modifier S- Potentially clinically significant findings (non lung cancer) RADIATION DOSE DELIVERED: 70.54mGy.cm Total DLP DATA REPOSITORY: All CT scans at this facility are submitted to the National Radiology Data Registry (NRDR) Dose Index Registry (DIR) with the [employer] (ACR). RADIATION OPTIMIZATION: All CT scans at this facility use at least one of these dose optimization te chniques: automated exposure control; mA and/or kV adjustment per patient size (includes targeted exa ms where dose is matched to clinical indication); or iterative reconstruction.
== END ==
PROVIDERS: PCP Family Medicine; Visit Provider Student in an Organized Health Care Education/Training Program
DX: F17.210 Nicotine dependence, cigarettes, uncomplicated (principal); Z12.2 Encounter for screening for malignant neoplasm of respiratory organs
CPT/HCPCS: 36415; 71271; 80053; 84443

== ENCOUNTER 2022-11-22 03:49 | Outpatient (CLI) | payer MEDICARE, SELFPAY ==
[2022-11-22 13:24] LABS: ALT 14 U/L (14-59); AST 21 U/L (15-37); Albumin 3.6 g/dL (3.4-5.0); Alkaline Phosphatase 155 U/L (46-116); Anion Gap 6.5 mmol/L (3-11); BUN 17 mg/dL (7-18); Bilirubin, Total 0.3 mg/dL (0.2-1.0); CO2 31.5 mmol/L (21.0-32.0); CREATININE 1.1 mg/dL (0.55-1.02); Calcium 9.3 mg/dL (8.5-10.1); Chloride 101 mmol/L (98-107); Estimated GFR 53.06 (mL/min/1.73m2); Glucose 102 mg/dL (74-106); Potassium 4.5 mmol/L (3.5-5.1); Sodium 139 mmol/L (136-145); TSH (W/Ref FT4) 1.84 uIU/mL (0.36-3.74); Total Protein 7.7 g/dL (6.4-8.2)
== END 2022-11-22 03:50 | disposition home or self-care (01) ==
LOC: LBO 03:49
PROVIDERS: PCP Family Medicine; Visit Provider Family Medicine
DX: I10 Essential (primary) hypertension (principal); N28.9 Disorder of kidney and ureter, unspecified
CPT/HCPCS: 36415; 80053; 84443

== ENCOUNTER → 2023-02-14 09:32 | Outpatient (BNVA) | payer MEDICARE, SELFPAY | PROVIDERS: PCP Family Medicine; Referring Provider Family Medicine; Visit Provider Physician Assistant Surgical | DX: J43.9 Emphysema, unspecified (principal); Z79.899 Other long term (current) drug therapy; F17.210 Nicotine dependence, cigarettes, uncomplicated; Z23 Encounter for immunization; I10 Essential (primary) hypertension | CPT/HCPCS: 90694; 99214; G0008 ==

== ENCOUNTER 2023-05-20 02:51 | Outpatient (CLI) | payer MEDICARE, SELFPAY ==
[2023-05-20 12:24] LABS: HCT 55.3 % (36.0-46.0); HGB 18.4 g/dL (11.2-15.7); MCH 28.8 pg (27.0-33.0); MCHC 33.3 % (32.0-36.0); MCV 87 fL (80-95); MPV 9.9 fL (8.0-11.0); Platelet Count 224 10^3/uL (130-400); RDW 14.9 % (11.7-14.6); RDW-SD 46.8 fL; WBC 7.64 10^3/uL (4.4-10.8)
[2023-05-20 12:56] LABS: ALT 11 U/L (14-59); AST 17 U/L (15-37); Albumin 3.5 g/dL (3.4-5.0); Alkaline Phosphatase 155 U/L (46-116); Anion Gap 6.1 mmol/L (3-11); BUN 15 mg/dL (7-18); Bilirubin, Total 0.5 mg/dL (0.2-1.0); CO2 32.9 mmol/L (21.0-32.0); CREATININE 1.1 mg/dL (0.55-1.02); Calculated LDL 196 mg/dL (<100); Chloride 101 mmol/L (98-107); Cholesterol 289 mg/dL (<200); Estimated GFR 53.06 (mL/min/1.73m2); Glucose 119 mg/dL (74-106); HDL Cholesterol 53 mg/dL (40-60); Potassium 3.9 mmol/L (3.5-5.1); Sodium 140 mmol/L (136-145); TSH (W/Ref FT4) 1.81 uIU/mL (0.36-3.74); Total Protein 7.9 g/dL (6.4-8.2); Triglyceride 202 mg/dL (<150)
[2023-05-20 13:08] LABS: Iron 61 ug/dL (50-170)
[2023-05-20 13:46] LABS: RBC 6.38 10^6/uL (3.93-5.22)
[2023-05-23 11:46] LABS: Erythropoietin 7.7 mIU/mL (2.6 - 18.5)
[2023-05-24 17:26] LABS: JAK2 Result see interpretation
[2023-05-25 14:23] LABS: JAK2 Sequencing Result see interpretation
== END 2023-05-20 02:52 | disposition home or self-care (01) ==
LOC: LBO 02:51
PROVIDERS: PCP Family Medicine; Visit Provider Family Medicine
DX: D75.1 Secondary polycythemia (principal); E03.9 Hypothyroidism, unspecified; I10 Essential (primary) hypertension
CPT/HCPCS: 0027U; 36415; 80053; 80061; 82668; 85027; 81270; 83540; 84443

== ENCOUNTER → 2023-08-15 10:24 | Outpatient (BNVA) | payer MEDICARE, SELFPAY | PROVIDERS: PCP Family Medicine; Referring Provider Family Medicine; Visit Provider Student in an Organized Health Care Education/Training Program | DX: J43.9 Emphysema, unspecified (principal); F17.210 Nicotine dependence, cigarettes, uncomplicated | CPT/HCPCS: 99214 ==

== ENCOUNTER → 2023-09-01 04:20 | Outpatient (CLI) | payer MEDICARE, SELFPAY | PROVIDERS: PCP Family Medicine; Visit Provider Family Medicine | DX: Z12.31 Encounter for screening mammogram for malignant neoplasm of breast (principal) | CPT/HCPCS: 77063; 77067 ==

== ENCOUNTER 2023-11-24 02:33 | Outpatient (CLI) | payer MEDICARE, SELFPAY ==
--- NOTE | 2023-11-24 10:25 | DI.CTLCSR_ITS ---
Exam(s) CT CHEST LUNG CANCER SCREEN EXAM: CT CHEST LUNG CANCER SCREEN CLINICAL HISTORY: Screening for lung cancer,CURRENT SMOKER, F17.210 TECHNIQUE: Imaging Protocol: Axial computed tomography images with coronal and sagittal reformatted images were created and reviewed COMPARISON: CT CT CHEST LUNG CANCER SCREEN from 11/22/2022 FINDINGS: Tracheobronchial tree: Patent where visualized. No bronchiectasis. Pulmonary parenchyma: No consolidation or dominant measurable mass. No architectural distortion. Stab le parenchymal calcifications are seen in the lateral aspect of the right lower lobe. There is a sta ble calcified granuloma in the right middle lobe. Lung Nodules: No suspicious pulmonary nodules. Mediastinum and Radha: No dominant adenopathy or fluid collection. The esophagus is unremarkable. Thyroid gland: Unremarkable. Lymph nodes: Unremarkable. Pleura: No effusion or pneumothorax. Heart: The heart is not dilated. Coronary artery calcification is present. No pericardial effusion. Aorta: Thoracic aorta non-dilated.Atherosclerotic calcification is present. Upper abdomen: Calcified granuloma seen in the spleen. Soft Tissues: Unremarkable. Bones: Within normal limits. Schmorl's nodes are again seen in the thoracic spine. IMPRESSION: No suspicious pulmonary nodules. Lung RADS Cat 1 - Negative: No nodules and definitely benign nodules Lung-RADS 1.0 CATEGORIES: Category 0 - Prior chest CT exam(s) being located for comparison. Category 1 - Annual screening in 12 months. No nodules or definitely benign nodules. Category 2 - Annual screening in 12 months. Benign appearance. Nodules with low likelihood of becomin g active cancer. Category 3 - 6-month follow-up. Probably benign. Short-term follow-up suggested. Nodules with low lik elihood of becoming active cancer. Category 4A - 3-month follow-up and CT/PET if >8 mm in size. Suspicious finding. Findings which requi re additional testing. Category 4B - Findings which require additional testing and tissue sampling. Suspicious finding. Category 4X - Category 3 or 4 nodules with additional features or imaging findings that increases the suspicion of malignancy. Modifier S- Potentially clinically significant finding. (Non lung cancer) RADIATION DOSE DELIVERED: Total DLP Total DLP DATA REPOSITORY: All CT scans at this facility are submitted to the National Radiology Data Registry (NRDR) Dose Index Registry (DIR) with the [employer] (ACR). RADIATION OPTIMIZATION: All CT scans at this facility use at least one of these dose optimization te chniques: automated exposure control; mA and/or kV adjustment per patient size (includes targeted exa ms where dose is matched to clinical indication); or iterative reconstruction.
== END 2023-11-24 02:53 ==
LOC: DI 02:33
PROVIDERS: PCP Family Medicine; Visit Provider Family Medicine
DX: F17.210 Nicotine dependence, cigarettes, uncomplicated (principal); D75.1 Secondary polycythemia; Z12.2 Encounter for screening for malignant neoplasm of respiratory organs
CPT/HCPCS: 36415; 71271; 80053; 84443

== ENCOUNTER 2023-11-24 04:52 | Outpatient (CLI) | payer MEDICARE, SELFPAY ==
[2023-11-24 11:00] LABS: ALT 16 U/L (14-59); AST 20 U/L (15-37); Albumin 3.7 g/dL (3.4-5.0); Alkaline Phosphatase 134 U/L (46-116); BUN 18 mg/dL (7-18); Bilirubin, Total 0.43 mg/dL (0.2-1.0); CREATININE 1.1 mg/dL (0.55-1.02); Calcium 9.5 mg/dL (8.5-10.1); Chloride 102 mmol/L (98-107); Estimated GFR 52.73 (mL/min/1.73m2); Glucose 97 mg/dL (74-106); Potassium 4.1 mmol/L (3.5-5.1); Sodium 139 mmol/L (136-145); TSH (W/Ref FT4) 1.44 uIU/mL (0.36-3.74); Total Protein 7.7 g/dL (6.4-8.2)
== END 2023-11-24 04:53 | disposition home or self-care (01) ==
LOC: LBO 04:53
PROVIDERS: PCP Family Medicine; Visit Provider Family Medicine
DX: I10 Essential (primary) hypertension (principal); E03.9 Hypothyroidism, unspecified
CPT/HCPCS: 36415; 80053; 84443

== ENCOUNTER 2024-07-10 10:15 | Outpatient (CLI) | payer MEDICARE, SELFPAY ==
[2024-07-10 12:25] LABS: HCT 52.1 % (36.0-46.0); MCHC 32.6 % (32.0-36.0); MCV 92 fL (80-95); MPV 10.8 fL (8.0-11.0); Platelet Count 273 10^3/uL (130-400); RBC 5.67 10^6/uL (3.93-5.22); RDW 14.6 % (11.7-14.6); RDW-SD 48.9 fL; WBC 8.36 10^3/uL (4.4-10.8)
[2024-07-10 12:59] LABS: ALT 9 U/L (14-59); AST 19 U/L (15-37); Albumin 3.3 g/dL (3.4-5.0); Alkaline Phosphatase 145 U/L (46-116); Anion Gap 4.4 mmol/L (3-11); BUN 16 mg/dL (7-18); Bilirubin, Total 0.6 mg/dL (0.2-1.0); CO2 33.6 mmol/L (21.0-32.0); CREATININE 1.1 mg/dL (0.55-1.02); Chloride 106 mmol/L (98-107); Estimated GFR 52.73 (mL/min/1.73m2); Glucose 108 mg/dL (74-106); Potassium 4.2 mmol/L (3.5-5.1); Sodium 144 mmol/L (136-145); Total Protein 7.7 g/dL (6.4-8.2)
== END 2024-07-10 10:16 | disposition home or self-care (01) ==
LOC: LOS 10:15
PROVIDERS: PCP Family Medicine; Referring Provider Family Medicine; Visit Provider Family Medicine
DX: R63.4 Abnormal weight loss (principal); E03.9 Hypothyroidism, unspecified; I10 Essential (primary) hypertension
CPT/HCPCS: 36415; 80053; 85027; 84443

== ENCOUNTER 2024-07-17 00:52 | Outpatient (CLI) | payer MEDICARE, SELFPAY ==
--- NOTE | 2024-07-17 07:15 | DI.CT_ITS ---
Exam(s) CT CHEST/ABD/PEL W EXAM: CT CHEST/ABD/PEL W CLINICAL HISTORY: 40 lb weight loss, heavy smoker,ANOREXIA,R63.0,R53.4 TECHNIQUE: Imaging Protocol: Axial computed tomography images with coronal and sagittal reformatted images were created and reviewed. Lung Computer Aided Detection (CAD) was utilized. CONTRAST MATERIAL: Intravenous: Omnipaque 350 contrast volume:100 mL Oral: Yes COMPARISON: CT CHEST ABD PELVIS WITH CONTRAST from 08/11/[address] CHEST LUNG CANCER SCREEN from 11/24/2023 FINDINGS: CHEST: Tracheobronchial tree: Patent where visualized. No evidence of bronchiectasis. Pulmonary parenchyma: No consolidation or dominant measurable mass. No architectural distortion. No s uspicious pulmonary nodules are present. No focal consolidating infiltrates are seen. Parenchymal c alcifications are seen in the right lung. These are unchanged. There is scarring or atelectasis see n in the left lower lobe, left lingula and right middle lobe. Visualized thyroid gland: Unremarkable. Mediastinum and Radha: No dominant adenopathy or fluid collection. The esophagus is unremarkable. Pleura: No effusion or pneumothorax. Heart: The heart is not dilated. Coronary artery calcification is present. No pericardial effusion. Pulmonary arteries: No pulmonary emboli are identified. Aorta: Thoracic aorta non-dilated. No evidence of dissection. Atherosclerotic calcification is prese nt. There is significant calcification at the origin of the left subclavian artery. There is approx imately 50 percent stenosis seen distal to the take-off of the left vertebral artery. Lymph nodes: Within normal limits. Soft tissues: Unremarkable. Bones:Within normal limits for the patient's age. There again seen Schmorl's nodes in the superior e ndplate of T11 and the inferior endplate of T8. No aggressive osseous lesions are seen. ABDOMEN: Liver: Normal density. No measurable mass. Portal, Superior Mesenteric, and Splenic Veins: Unremarkable. Gallbladder and Biliary Tract: No radiodense calculus or dilation. Pancreas: Normal density, no abnormal calcifications or inflammatory process. Spleen: Normal. Adrenals: No masses seen. Kidneys: Normal size, contour and axis. There is a nonobstructing stone in the right kidney. There a re few tiny hypodensities in the left kidney. They are too small for further characterization but li chaya reflect small cysts. No follow-up is recommended. Abdominal Aorta: Abdominal portion non-dilated. Atherosclerotic calcification is present. There is o cclusion of the right superficial femoral artery. Bowel: No obstruction or bowel wall thickening. No evidence of appendicitis. Peritoneal Cavity: No ascites, collection or mesenteric inflammatory response. No free air. Lymph Nodes: Within normal limits. Bones: Within normal limits for the patient's age. Soft Tissues: Unremarkable. PELVIS: Bladder: Symmetric distention, no gross wall thickening. Reproductive Organs: Status post hysterectomy. Lymph Nodes: Within normal limits. Bones: Within normal limits. There are marked degenerative changes seen in the right hip. IMPRESSION: 1. No acute pulmonary process. 2. No evidence of a thoracic mass or metastatic disease. 3. No acute abdominal or pelvic process. 4. Extensive atherosclerotic disease is seen in the chest, abdomen and pelvis. 5. 50 percent stenosis of the proximal right subclavian artery. 6. Occlusion of the right superficial femoral artery. Right lower extremity CT angiography may be co nsidered for further evaluation. Unexpected findings RADIATION DOSE DELIVERED: 183.98mGy.cm Total DLP DATA REPOSITORY: All CT scans at this facility are submitted to the National Radiology Data Registry (NRDR) Dose Index Registry (DIR) with the [employer] (ACR). RADIATION OPTIMIZATION: All CT scans at this facility use at least one of these dose optimization te chniques: automated exposure control; mA and/or kV adjustment per patient size (includes targeted exa ms where dose is matched to clinical indication); or iterative reconstruction.
[2024-07-17] MEDS: Barium Sulfate 2% W/V-Berry Smoothie 450 ML BTL PO ×2 (12:00→12:01)
[2024-07-17] MEDS: Normal Saline - Diluent 50 ML VIAL IJ (14:26)
[2024-07-17] MEDS: Omnipaque 350 MG/ML 100 ML BTL IJ (14:28)
== END 2024-07-17 01:12 ==
PROVIDERS: PCP Family Medicine; Visit Provider Family Medicine
DX: R63.0 Anorexia (principal); R63.4 Abnormal weight loss; F17.210 Nicotine dependence, cigarettes, uncomplicated; I77.89 Other specified disorders of arteries and arterioles
CPT/HCPCS: 74177; 71260; J3490

== ENCOUNTER 2024-09-05 00:31 | Outpatient (CLI) | payer MEDICARE, SELFPAY ==
--- NOTE | 2024-09-05 07:00 | DI.MAMMO_ITS ---
Exam(s) MG MAMMO SCREENING 60 MIN DUR EXAM: MG MAMMO SCREENING 60 MIN DUR CLINICAL HISTORY: breast cancer screening,Z12.31 TECHNIQUE: Mammograms were interpreted according to the usual protocol including computer analysis w [employer] CAD system, tomosynthesis and C-view imaging. COMPARISON: 2014 through 2023 FINDINGS: The breasts are composed of scattered fibroglandular densities, Breast Density category B. No suspicious masses or suspicious microcalcifications are seen. No skin thickening or abnormal axillary lymph nodes are seen. There has been no significant change from prior exams. IMPRESSION: BI-RADS Category 1, Negative mammogram Yearly screening mammography is recommended. Breast Density - Category B, scattered fibroglandular densities. Breast density Category C or D implies that the patient has dense breast tissue. Dense breast tissue can make it harder to find cancer on a mammogram. Dense breast tissue is also associated with an incr eased risk of breast cancer. This information about the result of the mammogram report was provided to the patient to raise their awareness. Use this report when you speak with the patient about their risks for breast cancer, which includes their family history. At that time, you may recommend additional screening tests (Ultrasoun d or MRI) as these tests may add significant information. A negative radiographic report should not delay biopsy if a dominant or clinically suspicious mass is present. Up to ten percent of cancers are not identified on mammography. A negative report may reinforce clinical impression. Adenosis and dense breasts may obscure an underlying neoplasm. False positive reports average 6 to 10%. Patient will receive a letter notifying them of these results.
== END 2024-09-05 00:51 ==
PROVIDERS: PCP Family Medicine; Visit Provider Family Medicine
DX: Z12.31 Encounter for screening mammogram for malignant neoplasm of breast (principal); R92.323 Mammographic fibroglandular density, bilateral breasts
CPT/HCPCS: 77063; 77067

== ENCOUNTER 2025-03-26 10:34 | Outpatient (CLI) | payer MEDICARE, SELFPAY ==
[2025-03-26 13:46] LABS: Vitamin B12 464 pg/mL (211-911)
[2025-03-26 13:48] LABS: ALT 12 U/L (10-49); AST 21 U/L (<34); Albumin 4.5 g/dL (3.2-5.0); Alkaline Phosphatase 127 U/L (46-116); Anion Gap 4.4 mmol/L (3-11); BUN 27 mg/dL (9-23); Bilirubin, Total 0.3 mg/dL (0.2-1.2); CO2 30.6 mmol/L (20.0-31.0); Calcium 9.9 mg/dL (8.3-10.6); Chloride 107 mmol/L (98-107); Glucose 105 mg/dL (74-106); Potassium 4.6 mmol/L (3.5-5.1); Sodium 142 mmol/L (136-145); Total Protein 7.4 g/dL (5.7-8.2)
[2025-03-27 00:33] LABS: Hepatitis C Ab w Rflx HCV PCR Negative (Negative)
== END 2025-03-26 10:35 | disposition home or self-care (01) ==
PROVIDERS: PCP Family Medicine; Visit Provider Family Medicine
DX: Z11.59 Encounter for screening for other viral diseases (principal); R41.89 Other symptoms and signs involving cognitive functions and awareness; I10 Essential (primary) hypertension
CPT/HCPCS: 36415; 80053; 86803; 82607